=== PATIENT | female | born 1945 | race Caucasian/White ===

== ENCOUNTER 2016-06-29 11:19 | Emergency (ER) | payer OTHER, MEDICAID ==
[~2016-06-29] VITALS: Ht 154.9 cm; Wt 61.2 kg
[~2016-06-29 11:19] MED LIST: ATEN-167 PO; GEMF600T3 PO; LOVA20TA2 PO; PRO40 PO; TRAM50TA92 PO
[2016-06-29 11:23] VITALS: BP 120/63; PULSE 75; RESP 18; TEMP 97.3; O2SAT 97
--- NOTE | 2016-06-29 11:43 | NUR ---
Patient to ER bed 8 to gown for evaluation. Side rails up. Report given to Jaime MATEHWS.
--- NOTE | 2016-06-29 12:00 | NUR ---
Dr. Turpin at bedside for evaluation
[2016-06-29 12:19] LABS: BASOPHILS % (AUTO) 0.4 % (0.0-2.0); EOSINOPHILS # (AUTO) 0.2 K/uL (0.0-0.4); EOSINOPHILS % (AUTO) 1.6 % (0.0-4.0); HEMATOCRIT 36.5 % (36-48); HEMOGLOBIN 12.4 g/dL (12.0-16.0); LYMPHOCYTES # (AUTO) 1.7 K/uL (1.0-5.5); MEAN CORPUSCULAR HEMOGLOBIN 29 pg (27-31); MEAN CORPUSCULAR HGB CONC 34 % (32-36); MEAN CORPUSCULAR VOLUME 86 fL (79.0-98.0); MONOCYTES # (AUTO) 0.7 K/uL (0.0-1.0); MONOCYTES % (AUTO) 6.3 % (1.7-9.3); NEUTROPHILS # (AUTO) 8.1 K/uL (1.8-7.7); NEUTROPHILS % (AUTO) 75.7 % (40.0-70.0); PLATELET COUNT (AUTO) 299 K/uL (130-430); RED BLOOD CELL COUNT(AUTO) 4.25 MIL/uL (4.2-6.2); RED CELL DISTRIBUTION WIDTH 12.7 % (9.0-15.0); WHITE BLOOD COUNT (AUTO) 10.7 K/uL (4.8-10.8)
[2016-06-29 12:28] LABS: ANION GAP 6 (5-15); CALCIUM 9.3 mg/dL (8.4-11.0); CHLORIDE 100 mmol/L (98-107); CREATININE 0.82 mg/dL (0.55-1.30); GLUCOSE 134 mg/dL (70-99); POTASSIUM 3.4 mmol/L (3.5-5.1); SODIUM SERUM 135 mmol/L (136-145); UREA NITROGEN, BLOOD 21 mg/dL (8-21)
--- NOTE | 2016-06-29 12:30 | NUR ---
Patient transported to radiology via w/c, accompanied by Bobby.
[2016-06-29 12:31] LABS: URIC ACID 6.9 mg/dL (2.4-7.0)
[2016-06-29] MEDS ORDERED: KETOROLAC TROMETHAMINE 60 MG/2 ML VIAL IM ONE (13:00)
--- NOTE | 2016-06-29 13:55 | NUR ---
Patient given written and verbal discharge instructions and verbalizes understanding. ER MD discussed with patient the results and treatment provided. Patient in stable condition. ID arm band removed. Rx of ibuprofen, keflex given. Patient educated on pain management and to follow up with PMD. Pain Scale 2/10. Opportunity for questions provided and answered.
[2016-06-29 13:56] VITALS: BP 120/63; PULSE 75; RESP 18; TEMP 97.3; O2SAT 97
== END 2016-06-29 13:56 | disposition home or self-care (01) ==
LOC: SED 11:19
DX: M79.672 Pain in left foot (principal); I10 Essential (primary) hypertension; K21.9 Gastro-esophageal reflux disease without esophagitis; E78.00 Pure hypercholesterolemia, unspecified; M81.0 Age-related osteoporosis without current pathological fracture; Z88.5 Allergy status to narcotic agent; Z88.6 Allergy status to analgesic agent
CPT/HCPCS: 36415; 73630; 80048; 84550; 85025; 96372; 99285; J1885

== ENCOUNTER 2016-07-09 17:51 | Emergency (ER) | payer OTHER, MEDICAID ==
[~2016-07-09] VITALS: Ht 154.9 cm; Wt 61.2 kg
[2016-07-09 18:07] VITALS: BP 134/85; PULSE 75; RESP 20; TEMP 98.2; O2SAT 98
--- NOTE | 2016-07-09 18:10 | NUR ---
Pt placed in ER waiting room, stable condition.
[2016-07-09 18:55] LABS: BASOPHILS % (AUTO) 0.3 % (0.0-2.0); EOSINOPHILS # (AUTO) 0.3 K/uL (0.0-0.4); EOSINOPHILS % (AUTO) 2.4 % (0.0-4.0); HEMATOCRIT 35.1 % (36-48); HEMOGLOBIN 12.4 g/dL (12.0-16.0); LYMPHOCYTES # (AUTO) 2.3 K/uL (1.0-5.5); MEAN CORPUSCULAR HEMOGLOBIN 30 pg (27-31); MEAN CORPUSCULAR HGB CONC 35 % (32-36); MEAN CORPUSCULAR VOLUME 85 fL (79.0-98.0); MONOCYTES # (AUTO) 0.7 K/uL (0.0-1.0); MONOCYTES % (AUTO) 6.6 % (1.7-9.3); NEUTROPHILS # (AUTO) 7.3 K/uL (1.8-7.7); NEUTROPHILS % (AUTO) 68.7 % (40.0-70.0); PLATELET COUNT (AUTO) 326 K/uL (130-430); RED BLOOD CELL COUNT(AUTO) 4.15 MIL/uL (4.2-6.2); WHITE BLOOD COUNT (AUTO) 10.6 K/uL (4.8-10.8)
--- NOTE | 2016-07-09 19:05 | NUR ---
Patient to ER bed 6 to gown for evaluation. Side rails up. Report given to Lissa MATHEWS.
[2016-07-09 19:13] LABS: ANION GAP 7 (5-15); CALCIUM 9.4 mg/dL (8.4-11.0); CHLORIDE 99 mmol/L (98-107); CREATININE 0.83 mg/dL (0.55-1.30); GLUCOSE 99 mg/dL (70-99); POTASSIUM 3.5 mmol/L (3.5-5.1); SODIUM SERUM 136 mmol/L (136-145); UREA NITROGEN, BLOOD 17 mg/dL (8-21)
--- NOTE | 2016-07-09 19:15 | NUR ---
PT. TO BED 5, ASSUMED CARE, STATES THAT SHE WAS HERE AT [facility] ON 06/29 FOR LEFT FOOT SWELLING, WAS DISCHARGED WITH [facility], STATES THAT SHE COULD NOT GET RHEUMOTOLOGY REFERAL BUT FINISHED HER ANTIBIOTICS, NON EFFECTIVE, STATES THAT MEDS WERE INEFFECTIVE, BACK TODAY FOR SWELLING AND PAIN TO LEFT FOOT, CAP REFIL 3 SECS ON AFFECTED FOOT, NO OTHER COMPLAINTS AT THIS TIME, PAIN 11/27
[2016-07-09 19:17] LABS: ALANINE AMINOTRANSFERASE 17 U/L (12-78); ALBUMIN 3.9 g/dL (3.4-4.8); ASPARTATE AMINOTRANSFERASE 14 U/L (10-37); TOTAL BILIRUBIN 0.5 mg/dL (0.0-1.0); TOTAL PROTEIN, SERUM 8.1 g/dL (6.4-8.3); URIC ACID 7.2 mg/dL (2.4-7.0)
--- NOTE | 2016-07-09 19:30 | NUR ---
dr. guillen at bedside examining the pt.
[2016-07-09] MEDS ORDERED: KETOROLAC TROMETHAMINE 60 MG/2 ML VIAL IM ONE (19:45)
[2016-07-09 20:35] VITALS: BP 135/77; PULSE 77; RESP 17; TEMP 98; O2SAT 99
--- NOTE | 2016-07-09 20:36 | NUR ---
Patient given written and verbal discharge instructions and verbalizes understanding. ER MD dr. guillen discussed with patient the results and treatment provided. Patient in stable condition. ID arm band removed. Rx of tramadol given. Patient educated on pain management and to follow up with PMD. Pain Scale 2/10 Opportunity for questions provided and answered.
== END 2016-07-09 20:35 | disposition home or self-care (01) ==
LOC: SED 17:51
DX: M10.9 Gout, unspecified (principal); I10 Essential (primary) hypertension; K21.9 Gastro-esophageal reflux disease without esophagitis; E78.00 Pure hypercholesterolemia, unspecified; Z88.6 Allergy status to analgesic agent; Z88.5 Allergy status to narcotic agent
CPT/HCPCS: 36415; 80053; 84550; 85025; 96372; 99284; J1885

== ENCOUNTER 2016-12-06 16:36 | Inpatient (IN) | payer OTHER, MEDICAID ==
[~2016-12-06] VITALS: Ht 154.9 cm; Wt 58.5 kg
[2016-12-06 16:38] VITALS: BP_SYST 134
[2016-12-06 17:04] LABS: BASOPHILS % (AUTO) 0.4 % (0.0-2.0); EOSINOPHILS # (AUTO) 0.2 K/uL (0.0-0.4); EOSINOPHILS % (AUTO) 1.6 % (0.0-4.0); HEMATOCRIT 35.7 % (36-48); LYMPHOCYTES # (AUTO) 1.9 K/uL (1.0-5.5); LYMPHOCYTES % (AUTO) 15.7 % (20.5-51.5); MEAN CORPUSCULAR HEMOGLOBIN 30 pg (27-31); MEAN CORPUSCULAR HGB CONC 34 % (32-36); MEAN CORPUSCULAR VOLUME 88 fL (79.0-98.0); MONOCYTES # (AUTO) 0.7 K/uL (0.0-1.0); MONOCYTES % (AUTO) 5.7 % (1.7-9.3); NEUTROPHILS # (AUTO) 9.3 K/uL (1.8-7.7); NEUTROPHILS % (AUTO) 76.6 % (40.0-70.0); PLATELET COUNT (AUTO) 281 K/uL (130-430); RED BLOOD CELL COUNT(AUTO) 4.05 MIL/uL (4.2-6.2); RED CELL DISTRIBUTION WIDTH 13.5 % (9.0-15.0); WHITE BLOOD COUNT (AUTO) 12.1 K/uL (4.8-10.8)
[2016-12-06] MEDS ORDERED: ASPIRIN 81 MG TABLET(ECOTRIN) PO ONE (17:15)
[2016-12-06] MEDS ORDERED: NITROGLYCERIN 0.4 MG TAB.SUBL SL ONE ×2 (17:15→17:27)
[2016-12-06 17:18] LABS: ANION GAP 5 (5-15); CALCIUM 8.9 mg/dL (8.4-11.0); CHLORIDE 101 mmol/L (98-107); GLUCOSE 111 mg/dL (70-99); POTASSIUM 4.4 mmol/L (3.5-5.1); SODIUM SERUM 136 mmol/L (136-145); UREA NITROGEN, BLOOD 18 mg/dL (8-21)
[2016-12-06] MEDS ORDERED: ASPIRIN 81 MG TAB.CHEW ONE (17:26)
[2016-12-06 17:27] LABS: ALANINE AMINOTRANSFERASE 19 U/L (12-78); ALBUMIN 3.9 g/dL (3.4-4.8); ASPARTATE AMINOTRANSFERASE 19 U/L (10-37); TOTAL BILIRUBIN 0.7 mg/dL (0.0-1.0); TOTAL PROTEIN, SERUM 7.3 g/dL (6.4-8.3)
[2016-12-06] MEDS ORDERED: ATEN50TA PO (19:25)
[2016-12-06] MEDS ORDERED: CHOL100035 PO (19:25)
[2016-12-06] MEDS ORDERED: GABA-531 PO (19:25)
[2016-12-06] MEDS ORDERED: PANT20TA2 PO (19:25)
[2016-12-06] MEDS ORDERED: ASCO500T20 PO (19:25)
[2016-12-06] MEDS ORDERED: MILN25TA PO (19:25)
[2016-12-06] MEDS ORDERED: MAGN250T27 PO (19:25)
[2016-12-06] MEDS ORDERED: ALLO100T PO (19:25)
[2016-12-06 19:43] VITALS: BP_SYST 146
[2016-12-06] MEDS ORDERED: TEMAZEPAM 15 MG CAPSULE PO PRN (22:30)
[2016-12-06] MEDS ORDERED: ACETAMINOPHEN 325 MG TABLET PO PRN (22:30)
[2016-12-06] MEDS ORDERED: traMADol HCL HCL 50 MG TABLET (ULTRAM) PO SCH (22:30)
[2016-12-06 23:52] LABS: BILIRUBIN,URINE NEGATIVE (NEGATIVE); BLOOD, URINE NEGATIVE (NEGATIVE); CLARITY/URINE CLEAR (CLEAR); COLOR,URINE YELLOW (YELLOW); GLUCOSE,URINE NEGATIVE (NEGATIVE); KETONES,URINE NEGATIVE (NEGATIVE); LEUKOCYTE ESTERASE ,URINE NEGATIVE (NEGATIVE); NITRITE, URINE NEGATIVE (NEGATIVE); PROTEIN URINE NEGATIVE (NEGATIVE); UROBILINOGEN,URINE 0.2 (0.2-1.0)
[2016-12-07] VITALS (7 sets, daily range): BP systolic 121–165
[2016-12-07 06:38] LABS: BASOPHILS % (AUTO) 0.4 % (0.0-2.0); EOSINOPHILS # (AUTO) 0.2 K/uL (0.0-0.4); EOSINOPHILS % (AUTO) 2.4 % (0.0-4.0); HEMATOCRIT 36.5 % (36-48); HEMOGLOBIN 12.4 g/dL (12.0-16.0); LYMPHOCYTES # (AUTO) 2.1 K/uL (1.0-5.5); MEAN CORPUSCULAR HEMOGLOBIN 30 pg (27-31); MEAN CORPUSCULAR HGB CONC 34 % (32-36); MEAN CORPUSCULAR VOLUME 89 fL (79.0-98.0); MONOCYTES # (AUTO) 0.8 K/uL (0.0-1.0); MONOCYTES % (AUTO) 8.2 % (1.7-9.3); NEUTROPHILS # (AUTO) 6.7 K/uL (1.8-7.7); PLATELET COUNT (AUTO) 280 K/uL (130-430); RED BLOOD CELL COUNT(AUTO) 4.11 MIL/uL (4.2-6.2); RED CELL DISTRIBUTION WIDTH 13.1 % (9.0-15.0); WHITE BLOOD COUNT (AUTO) 9.8 K/uL (4.8-10.8)
[2016-12-07 07:13] LABS: ALANINE AMINOTRANSFERASE 16 U/L (12-78); ALBUMIN 3.6 g/dL (3.4-4.8); ANION GAP 6 (5-15); ASPARTATE AMINOTRANSFERASE 17 U/L (10-37); CALCIUM 9.2 mg/dL (8.4-11.0); CHLORIDE 109 mmol/L (98-107); CHOLESTEROL 284 mg/dL (<200); CREATININE 0.77 mg/dL (0.55-1.30); FREE T4 (FREE THYROXINE) 0.8 ng/dL (0.6-1.6); GLUCOSE 98 mg/dL (70-99); HDL CHOLESTEROL 45 mg/dL (>55); LDL CHOLESTEROL 166 mg/dL (<100); POTASSIUM 4.5 mmol/L (3.5-5.1); SODIUM SERUM 145 mmol/L (136-145); THYROID STIMULATING HORMONE 2.43 uIu/mL (0.34-4.82); TOTAL BILIRUBIN 0.6 mg/dL (0.0-1.0); TOTAL PROTEIN, SERUM 7.5 g/dL (6.4-8.3); TRIGLYCERIDES 298 mg/dL (30-150); UREA NITROGEN, BLOOD 16 mg/dL (8-21)
[2016-12-07 07:37] LABS: ERYTHROCYTE SEDIMENTATION RATE 50 MM/HR (0-20)
[2016-12-07] MEDS ORDERED: COMMUNICATION ORDER XX SCH ×2 (08:00→10:00)
[2016-12-07] MEDS ORDERED: REGADENOSON 0.4 MG/5 ML SYRINGE IVP ONE ×2 (09:00→16:00)
[2016-12-07] MEDS: PANTOPRAZOLE SODIUM 40 MG TAB PO SCH (10:52)
[2016-12-07] MEDS: ASPIRIN 81 MG TABLET(ECOTRIN) PO SCH (10:53)
[2016-12-07] MEDS: ATENOLOL 50 MG TABLET (TENORMIN) PO SCH (10:53)
[2016-12-07] MEDS: ASCORBIC ACID 500 MG TABLET PO SCH (18:24)
[2016-12-07] MEDS: MAGNESIUM OXIDE 400 MG TABLET PO SCH (18:24)
[2016-12-07] MEDS: CHOLECALCIFEROL (VITAMIN D3) 2,000 UNIT TABLET PO SCH (18:24)
[2016-12-07] MEDS: NITROGLYCERIN 0.4 MG TAB.SUBL SL PRN ×2 (20:14→20:48)
[2016-12-07] MEDS: GABAPENTIN 300 MG CAPSULE PO SCH (20:24)
[2016-12-07] MEDS: ALLOPURINOL 100 MG TABLET (ZYLOPRIM) PO SCH (20:24)
[2016-12-07] MEDS: SIMVASTATIN 10 MG TABLET PO SCH (20:24)
[2016-12-07] MEDS: GEMFIBROZIL 600 MG TABLET (LOPID) PO SCH (20:25)
[2016-12-07] MEDS: traMADol HCL HCL 50 MG TABLET (ULTRAM) PO PRN (21:56)
[2016-12-08] VITALS (7 sets, daily range): BP systolic 118–140
[2016-12-08] MEDS: ATENOLOL 50 MG TABLET (TENORMIN) PO SCH ×2 (09:00→18:04)
[2016-12-08] MEDS: PANTOPRAZOLE SODIUM 40 MG TAB PO SCH ×2 (09:00→18:03)
[2016-12-08] MEDS: ASPIRIN 81 MG TABLET(ECOTRIN) PO SCH ×2 (09:00→18:04)
[2016-12-08] MEDS: ASCORBIC ACID 500 MG TABLET PO SCH (18:00)
[2016-12-08] MEDS: CHOLECALCIFEROL (VITAMIN D3) 2,000 UNIT TABLET PO SCH (18:00)
[2016-12-08] MEDS: MAGNESIUM OXIDE 400 MG TABLET PO SCH (18:01)
[2016-12-08] MEDS: GABAPENTIN 300 MG CAPSULE PO SCH (21:20)
[2016-12-08] MEDS: ALLOPURINOL 100 MG TABLET (ZYLOPRIM) PO SCH (21:20)
[2016-12-08] MEDS: GEMFIBROZIL 600 MG TABLET (LOPID) PO SCH (21:21)
[2016-12-08] MEDS: traMADol HCL HCL 50 MG TABLET (ULTRAM) PO PRN (21:21)
[2016-12-08] MEDS: SIMVASTATIN 10 MG TABLET PO SCH (21:22)
[2016-12-09 05:12] VITALS: BP_SYST 122
[2016-12-09 07:19] LABS: BASOPHILS # (AUTO) 0.1 K/uL (0.0-0.2); BASOPHILS % (AUTO) 0.4 % (0.0-2.0); EOSINOPHILS # (AUTO) 0.2 K/uL (0.0-0.4); EOSINOPHILS % (AUTO) 1.7 % (0.0-4.0); HEMOGLOBIN 11.8 g/dL (12.0-16.0); LYMPHOCYTES % (AUTO) 15.6 % (20.5-51.5); MEAN CORPUSCULAR HEMOGLOBIN 31 pg (27-31); MEAN CORPUSCULAR HGB CONC 35 % (32-36); MEAN CORPUSCULAR VOLUME 88 fL (79.0-98.0); MONOCYTES # (AUTO) 0.9 K/uL (0.0-1.0); MONOCYTES % (AUTO) 6.7 % (1.7-9.3); NEUTROPHILS # (AUTO) 9.8 K/uL (1.8-7.7); NEUTROPHILS % (AUTO) 75.6 % (40.0-70.0); PLATELET COUNT (AUTO) 277 K/uL (130-430); RED BLOOD CELL COUNT(AUTO) 3.86 MIL/uL (4.2-6.2); RED CELL DISTRIBUTION WIDTH 13.1 % (9.0-15.0); WHITE BLOOD COUNT (AUTO) 12.9 K/uL (4.8-10.8)
[2016-12-09 08:00] LABS: ANION GAP 7 (5-15); CHLORIDE 104 mmol/L (98-107); CREATININE 0.78 mg/dL (0.55-1.30); GLUCOSE 115 mg/dL (70-99); POTASSIUM 4.2 mmol/L (3.5-5.1); SODIUM SERUM 136 mmol/L (136-145); UREA NITROGEN, BLOOD 18 mg/dL (8-21)
[2016-12-09 08:30] VITALS: BP_SYST 95
[2016-12-09] MEDS: PANTOPRAZOLE SODIUM 40 MG TAB PO SCH (08:38)
[2016-12-09] MEDS: traMADol HCL HCL 50 MG TABLET (ULTRAM) PO PRN (08:38)
[2016-12-09] MEDS: ASPIRIN 81 MG TABLET(ECOTRIN) PO SCH (08:38)
[2016-12-09] MEDS: ATENOLOL 50 MG TABLET (TENORMIN) PO SCH (08:39)
[2016-12-09 12:11] VITALS: BP_SYST 156
[2016-12-09 15:19] VITALS: BP_SYST 112
== END 2016-12-09 15:55 | disposition home or self-care (01) | DRG 313 ==
LOC: SED 16:36 → STU 19:13 → SMU 12-09 13:06
PROVIDERS: ADMIT Internal Medicine; ATTEND Internal Medicine
DX: R07.89 Other chest pain (principal); I10 Essential (primary) hypertension; E78.5 Hyperlipidemia, unspecified; M10.9 Gout, unspecified; M79.7 Fibromyalgia; K21.9 Gastro-esophageal reflux disease without esophagitis; K44.9 Diaphragmatic hernia without obstruction or gangrene; R91.1 Solitary pulmonary nodule; M19.90 Unspecified osteoarthritis, unspecified site; G89.4 Chronic pain syndrome; Z87.891 Personal history of nicotine dependence; Z88.6 Allergy status to analgesic agent; Z88.8 Allergy status to other drugs, medicaments and biological substances; Z80.0 Family history of malignant neoplasm of digestive organs; Z79.899 Other long term (current) drug therapy
CPT/HCPCS: 36415; 71010; 71250-TC; 80048; 80053; 80061; 81003; 83735-TC; 84439; 84443-TC; 84484; 85025; 85379; 85651-TC; 93005; 93017; 93306; 99285; A9500; J2785

== ENCOUNTER 2019-12-25 08:55 | Emergency (ER) | payer OTHER, MEDICAID ==
[~2019-12-25] VITALS: Ht 152.4 cm; Wt 56.7 kg
[2019-12-25 08:55] VITALS: BP_SYST 127
[~2019-12-25 08:55] MED LIST changes: +ALLO100T PO; +ASCO500T20 PO; +ATEN50TA PO; +CHOL100035 PO; +GABA-531 PO; -GEMF600T3 PO; +GEMF600T5 PO; +MAGN250T27 PO; +MILN25TA PO; +PANT20TA2 PO
[2019-12-25] MEDS ORDERED: KETOROLAC TROMETHAMINE 60 MG/2 ML VIAL IM ONE ×2 (09:45→09:47)
[2019-12-25 10:11] VITALS: BP_SYST 121
== END 2019-12-25 10:12 | disposition home or self-care (01) ==
LOC: SED 08:55
DX: S40.012A Contusion of left shoulder, initial encounter (principal); K21.9 Gastro-esophageal reflux disease without esophagitis; I10 Essential (primary) hypertension; E78.00 Pure hypercholesterolemia, unspecified; Z86.73 Personal history of transient ischemic attack (TIA), and cerebral infarction without residual deficits; Z79.899 Other long term (current) drug therapy; Z88.6 Allergy status to analgesic agent; Z88.5 Allergy status to narcotic agent; W18.39XA Other fall on same level, initial encounter; Y93.89 Activity, other specified; Y92.89 Other specified places as the place of occurrence of the external cause; Y99.8 Other external cause status
CPT/HCPCS: 73030; 73110; 96372; 99284; J1885; J7030